=== PATIENT | female | born 2000 | race Caucasian/White ===

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

== ENCOUNTER 2020-01-08 19:43 | Emergency (ER) | payer BC ==
[~2020-01-08] VITALS: Ht 157.5 cm; Wt 90.7 kg
[~2020-01-08 19:43] MED LIST: ACCUNEB SO1.25 MG/1 INH; LEXAPRO20 MG PO; NEBULIZER MISCELL; PREDNISONE 10 M10 M1 PO; ZYRTEC 10 MG TA10 MG PO
[2020-01-08] MEDS ORDERED: ADDERALL XR 3030 MG PO (20:12)
[2020-01-08] MEDS ORDERED: ADVAIR 250-501 EACH INH (21:28)
[2020-01-08] MEDS ORDERED: PREDNISONE50 MG PO (21:28)
[2020-01-08 21:37] VITALS: BP 135/70
== END 2020-01-08 21:38 | disposition home or self-care (01) ==
LOC: M.ERS 19:43
DX: J45.901 Unspecified asthma with (acute) exacerbation (principal)